=== PATIENT | male | born 2000 | race Caucasian/White ===

== ENCOUNTER 2024-05-03 12:30 | Outpatient (AMB) | payer MEDICAID, SELFPAY ==
--- NOTE | 2024-05-03 13:08 | A.OFFVIS_ITS ---
Intake Visit Reasons: epididymal cyst Intake Note: New Patient presents today for initial visit to establish treatment for : epididymal cyst Urology Medications: none Allergies to Antibiotic: none Blood Thinner: none Jet Piercer Operator Required: No Accompanied by: Mother Allergies No Known Allergies Allergy (Verified 05/03/24 14:01) Medication List - Last Reconciled 05/03/24 by NIURKA Dyer- insulin glargine (Lantus Solostar U-100 Insulin) units subcut DAILY insulin lispro 0 - 125 units subcut DAILY HPI Comments Details: Jonh is a very pleasant 23-year-old male patient of Dr. Matthews who is accompanied by his mom at todays office visit. He has a past medical history of type 1 diabetes. He presents to the office today as a new patient for ongoing right scrotal/testicular pain he has been experiencing. In discussion with the patient today he reports pain has been present for approximately 6 months. He reports initially pain starts on the right side of his abdomen however this has since resolved. He reports following up with his PCP at which time a CT of the abdomen was ordered and performed as well as a scrotal ultrasound. These results reviewed with the patient today. CT notes no inflammatory changes surrounding the appendix. Prominent mesenteric lymph nodes may represent mesenteric adenitis. Kidneys, ureters, and bladder are normal. No hydronephrosis, stones, or suspicious mass seen. Bilateral testicles are normal in size, contour, and echotexture without focal lesions. 0.2 cm cyst in the epididymal head otherwise no hydroceles or varicoceles present. In assessment of the patient today pain upon palpation of very small right-sided epididymal head cyst otherwise no open areas, drainage, and or lesions noted. No other palpable abnormalities. Patient reports right-sided abdominal pain he had been experiencing has since subsided. He does endorse intermittent episodes of right-sided testicular/scrotal pain. He reports pain comes and goes. He denies any exacerbating factors. He has not attempted any oymc-ywz-vtokqli remedies such as Tylenol, Motrin, he, and or ice. Discussed at length potential causes of epididymal head cysts. He otherwise denies any bothersome urinary issues. He denies urinary urgency, urinary frequency, incontinence, nocturia, hematuria, dysuria, foul smelling urine, changes to urinary stream, flank pain, fever, and or chills. He is happy with his current voiding parameters. In office urinal ysis results reviewed with the patient today. [facility] Medical History Type 1 diabetes Review of Systems Const All systems reviewed & are unremarkable except as noted in HPI and below Physical Exam Const General: cooperative, healthy appearing, comfortable, no acute distress, well developed, alert and awake Orientation/consciousness: patient oriented x3 Limitations: no limitations HEENT Head: Yes normal to inspection, Yes normocephalic and Yes atraumatic Ears: hearing grossly normal bilaterally Eyes General: appearance normal, both eyes and all related structures Neck Neck: Yes normal visual inspection and Yes trachea midline Chest Chest palpation & inspection: normal inspection of the chest Resp Effort & Inspection: normal respiratory effort and able to speak in complete sentences Cardio Rate: regular rate GI Inspection: Yes normal to inspection General: Yes no CVA tenderness Back/Spine/Pelvis Back: no CVA tenderness Skin General skin exam: no rashes or lesions noted Neuro General: patient oriented x3 Extrem General: Yes normal to inspection Psych Appearance: grossly normal and well kempt Mental Status: mental status grossly normal Speech and movement: Normal speech and movement present and Clear speech present Affect: normal affect Attitude: cooperative Thought process: Normal thought process present Thought content: Normal thought content present Insight: Fair insight present (Psych) Judgement: Fair judgement present (Psych) Results AMB Urinalysis, Automated UA Leukoctes 0 Zakia/uL Last Edit by [employer] Terry on 05/03/24 13:37 UA Nitrite Negative Last Edit by [employer] Terry on 05/03/24 13:37 UA Urobilinogen 0.2 mg/dL Last Edit by [employer] Terry on 05/03/24 13:37 UA Protein 15 mg/dL Last Edit by [employer] Harrison on 05/03/24 13:37 UA pH 6.0 Last Edit by [employer] Terry on 05/03/24 13:37 UA Blood 0 Rojelio/uL Last Edit by [employer] Terry on 05/03/24 13:37 UA Specific [place] 1.020 Last Edit by [employer] Terry on 05/03/24 13:37 UA Ketone Negative Last Edit by [employer] Terry on 05/03/24 13:37 UA Bilirubin 0 mg/dL Last Edit by Saad Terry on 05/03/24 13:37 UA Glucose 0 mg/dL Last Edit by Saad Terry on 05/03/24 13:37 Results Reviewed Results Reviewed: Laboratory Last Values Urine pH (Auto) 6.0 05/03/24 13:36 Specific [place] (Auto) 1.020 05/03/24 13:36 Urine Protein (Auto) 15 mg/dL 05/03/24 13:36 Glucose (UA)(Auto) 0 mg/dL 05/03/24 13:36 Urine Ketones (Auto) Negative 05/03/24 13:36 Urine Blood (Auto) 0 Rojelio/uL 05/03/24 13:36 Urine Nitrite (Auto) Negative 05/03/24 13:36 Urine Bilirubin (Auto) 0 mg/dL 05/03/24 13:36 Urine Urobilinogen (Auto) 0.2 mg/dL 05/03/24 13:36 Leukocyte Esterase (Auto) 0 Zakia/uL 05/03/24 13:36 Assessment & Plan Assessment & Plan (1) Epididymal cyst: Code(s): N50.3 - Cyst of epididymis Category: Medical (2) Pain in scrotum: Code(s): N50.82 - Scrotal pain Category: Medical Plan In office urinalysis results reviewed with the patient today. Recent CT and scrotal ultrasound results reviewed with the patient today. Discussed at length potential causes of epididymal head cysts. Reassurance provided. Discussed seeking medical treatment if symptoms worsen and or persist. Discussed OTC Tylenol, Motrin, heat, or ice. Will repeat scrotal ultrasound in 6 months Patient currently denies any bothersome urinary issues or concerns. He reports be happy with current voiding parameters. Follow-up in 6 months with imaging to be completed prior; or sooner with any issues, concerns, and or questions. Orders: Orders US scrotum 6 Months N50.3 - Cyst of epididymis AMB Urinalysis Automated Today Z13.9 - Encounter for screening, unspecified Patient Instructions: The patient had an opportunity to ask questions regarding the treatment plan. All questions were answered. Physical exam, labs, and imaging were discussed and reviewed in detail. As well as risks, benefits, and discussion of treatment choices. No major barriers to understanding were identified. The patient expressed understanding and agreement with the above treatment plan. The patient was made aware they should contact our office by phone for worsening of their current condition, the appearance of new symptoms, or with any questions or concerns. Compliance is encouraged with any medications and follow up testing that is ordered. It is a privilege to be allowed the opportunity to participate in? your urological care.? Again, if you have any questions or concerns If you have any questions or concerns please do not hesitate to contact me. The office is [phone]. This note is constructed using voice recognition software. While every effort has been made to ensure accuracy vulcanizer operator errors may have been included. Yours sincerely, KERRY Dyer Coding Level of Care Code New Pt Level 4 (58063) Diagnoses Epididymal cyst N50.3 Pain in scrotum N50.82 Time Spent (min) 35
== END 2024-05-03 14:03 | disposition home or self-care (01) ==
PROVIDERS: PCP Internal Medicine; Visit Provider Nurse Practitioner Family
DX: N50.3 Cyst of epididymis (principal); N50.82 Scrotal pain; Z13.9 Encounter for screening, unspecified
CPT/HCPCS: 99204

== ENCOUNTER → 2024-05-03 12:30 | Outpatient (BNVA) | payer MEDICAID, SELFPAY | PROVIDERS: PCP Internal Medicine; Visit Provider Nurse Practitioner Family | DX: N50.3 Cyst of epididymis (principal); N50.82 Scrotal pain | CPT/HCPCS: 81003; 99212 ==

== ENCOUNTER 2024-10-17 12:52 | Outpatient (REF) | payer MEDICAID, SELFPAY ==
--- NOTE | ~2024-10-17 | US_ITS ---
EXAMINATION: US SCROTUM CLINICAL INFORMATION: Cyst of epididymis. COMPARISON: None available. TECHNIQUE: A sonogram of the scrotum was performed assessing eduardo-scale appearance and color Doppler flow. Spectral Doppler analysis of the arterial and venous flow were performed in the testes bilaterally. FINDINGS: RIGHT: Right testicle measures 4.6 x 2.6 x 3.6 cm, volume 23.1 mL. No focal testicular parenchymal lesions are visualized. Spectral Doppler analysis of the arterial and venous flow is normal in the right testis. Right epididymal cyst measures 0.2 x 0.1 x 0.3 cm. No right varicocele is seen. Right epididymal Doppler flow is normal. Small right hydrocele. LEFT: Left testicle measures 4.7 x 2.4 x 3.1 cm, volume 17.8 mL. No focal testicular parenchymal lesions are visualized. Spectral Doppler analysis of the arterial and venous flow is normal in the left testis. Left epididymal head is normal in size. Left epididymal Doppler flow is normal. Small left hydrocele. Left varicocele present. US/US scrotum IMPRESSION: Tiny 0.3 cm right epididymal cyst. Small bilateral hydroceles. Left varicocele. Electronically signed by: Sumaya Main MD 12/04/2024 11:52 AM EST
== END 2024-10-17 12:53 | disposition home or self-care (01) ==
LOC: HO.US 12:52
PROVIDERS: PCP Internal Medicine; Visit Provider Nurse Practitioner Family
DX: N50.3 Cyst of epididymis (principal)
CPT/HCPCS: 76870

== ENCOUNTER 2024-10-24 15:10 | Outpatient (AMB) | payer MEDICAID, SELFPAY ==
--- NOTE | 2024-10-24 15:11 | MHC.OFFVIS ---
Intake Visit Reasons: /US(set) [phone] Intake Note: Patient is present for 6M/US Urology Medication:NONE Antibiotic Allergy:NONE Blood Thinner:NONE Locker Room Supervisor Required: No Allergies No Known Allergies Allergy (Verified 10/24/24 15:21) Medication List - Last Reconciled 10/24/24 by KERRY Dyer insulin glargine (Lantus Solostar U-100 Insulin) units subcut DAILY insulin lispro 0 - 125 units subcut DAILY HPI Comments Details: Jonh is a very pleasant 24-year-old male patient of Dr. Matthews. He has a past medical history of type 1 diabetes. He is being followed up on today via video telehealth for his ongoing right-sided scrotal/testicular discomfort he had been experiencing. In discussion with the patient today he reports to be doing and feeling well. He reports since his last office visit here a proximally 6 months ago he has experienced intermittent self-limiting right-sided scrotal discomfort. Recent unoffical scrotal imaging results reviewed with the patient today. Right small epididymal head cyst. Bilateral very small hydroceles. Left-sided varicocele. He does endorse intermittent episodes of right-sided testicular/scrotal pain. He reports pain comes and goes. He denies any exacerbating factors. He has not attempted any mwks-nvu-wnrbkkq remedies such as Tylenol, Motrin, heat, and or ice. Discussed at length potential causes of epididymal head cysts as well as hydroceles. He otherwise denies any bothersome urinary issues. He denies urinary urgency, urinary frequency, incontinence, nocturia, hematuria, dysuria, foul smelling urine, changes to urinary stream, flank pain, fever, and or chills. He is happy with his current voiding parameters. He otherwise offers no other issues or concerns at this time. [facility] Medical History Type 1 diabetes Review of Systems Const All systems reviewed & are unremarkable except as noted in HPI and below Physical Exam Const General: healthy appearing Orientation/consciousness: patient oriented x3 Resp Effort & Inspection: normal respiratory effort and able to speak in complete sentences Neuro General: patient oriented x3 Psych Appearance: grossly normal Mental Status: mental status grossly normal Speech and movement: Clear speech present Affect: normal affect Attitude: cooperative Thought process: Normal thought process present Thought content: Normal thought content present Insight: Fair insight present (Psych) Judgement: Fair judgement present (Psych) Telehealth Telehealth Telehealth Platform: Telephone Location of provider rendering services: practice address Location of patient: address on file Patient Identification confirmed using: Name, : Yes Telehealth method: video Patient verbally consented to treatment: Yes Patient verbally consented to billing insurance company: Yes Patient informed of any privacy concerns related to visit: Yes Minutes spent on Phone/Video with Pt.: 10 Assessment & Plan Assessment & Plan (1) Epididymal cyst: Code(s): N50.3 - Cyst of epididymis Category: Medical (2) Pain in scrotum: Code(s): N50.82 - Scrotal pain Category: Medical Plan Recent scrotal ultrasound results reviewed with the patient today; as noted above. Discussed at potential causes of epididymal head cysts as well as hydroceles. We discussed further treatment options to include surveillance monitoring verses surgical intervention; risks and benefits of these interventions were discussed. Reassurance provided. Discussed seeking medical treatment if symptoms worsen and or persist. Discussed OTC Tylenol, Motrin, heat, or ice. Will repeat scrotal ultrasound in one year Patient currently denies any bothersome urinary issues or concerns. He reports be happy with current voiding parameters. Follow-up in 1 year with imaging to be completed prior; or sooner with any issues, concerns, and or questions. Orders: Orders US scrotum 1 Year N43.3 - Hydrocele, unspecified Patient Instructions: The patient had an opportunity to ask questions regarding the treatment plan. All questions were answered. Physical exam, labs, and imaging were discussed and reviewed in detail. As well as risks, benefits, and discussion of treatment choices. No major barriers to understanding were identified. The patient expressed understanding and agreement with the above treatment plan. The patient was made aware they should contact our office by phone for worsening of their current condition, the appearance of new symptoms, or with any questions or concerns. Compliance is encouraged with any medications and follow up testing that is ordered. It is a privilege to be allowed the opportunity to participate in? your urological care.? Again, if you have any questions or concerns If you have any questions or concerns please do not hesitate to contact me. The office is [phone]. This note is constructed using voice recognition software. While every effort has been made to ensure accuracy cut off machine operator errors may have been included. Yours sincerely, Odalis Julian, NIURKA-BC Coding Level of Care Code Tele Est Pt Level 2 (27976) Diagnoses Epididymal cyst N50.3 Pain in scrotum N50.82
== END 2024-10-24 15:31 | disposition home or self-care (01) ==
LOC: HO.HUSH 15:10
PROVIDERS: PCP Internal Medicine; Visit Provider Nurse Practitioner Family
DX: N50.3 Cyst of epididymis (principal); N50.82 Scrotal pain
CPT/HCPCS: 99212

== ENCOUNTER → 2024-10-24 15:10 | Outpatient (BNVA) | payer MEDICAID, SELFPAY | PROVIDERS: PCP Internal Medicine; Visit Provider Nurse Practitioner Family ==